=== PATIENT | male | born 1940 | race Caucasian/White ===

== ENCOUNTER → 2017-06-12 | Day surgery (SDC) | payer MEDICARE ==
[~2017-06-12] VITALS: Ht 165.1 cm; Wt 77.3 kg
[~2017-06-12] MED LIST: AMLO5 PO; ASPI-516 CHEW; BUPIVACAINE HCL PF 0.5% 30 ML VIAL ONE; CEPH-459 PO; CHLORHEXIDINE GLUCONATE 2 % 1 PACK (2 CLOTHS) TOPICAL PRN; DOXA1TAB34 PO; KETO1DRO7 EACH EYE; LACTATED RINGER'S 1000 ML IV PRN; LIDOCAINE HCL 1% PF 5 ML SYRINGE OTHER ONE; LIDOCAINE HCL 2% 50 ML VIAL ONE; METOPROLOL TARTRATE 25 MG TAB PO PRN; NEOMYCIN/POLYMYXIN 1 ML G.U. IRRIGANT ONE; OMEGCAP PO; PERC7.5T13 PO; PHENYLEPH/NS 1000 MCG/10 ML SYR IV ONE; POVIDONE IODINE 5% (ANTISEPSIS KIT) 4 APPLICATIONS EACH NARE PRN; PRAV10TA PO; PRIL20TA2 PO; PROPOFOL 200 MG/20 ML AMP IV ONE; REFRDRO EACH EYE; SODIUM CHLORID 0.9% 500 ML IV PRN; ceFAZolin 1,000 MG/NS 100 ML IV SCH; ePHEDrine/NS 25 MG/5 ML SYRINGE IV ONE
[2017-06-12 10:13] LABS: HEMATOCRIT 40.4 % (39.0-51.0); HEMOGLOBIN 13.9 GM/DL (13.0-17.0); MEAN CELL VOLUME 88.4 FL (80.0-100.0); MEAN CORPUSCULAR HEMOGLOBIN 30.5 PG (27.0-34.0); MEAN CORPUSCULAR HGB CONC 34.5 % (32.0-36.0); MEAN PLATELET VOLUME 8.1 FL (7.0-11.0); PLATELET COUNT 223 TH/MM3 (150-450); RED BLOOD COUNT 4.57 MIL/MM3 (4.50-5.90); RED CELL DISTRIBUTION WIDTH 13.5 % (11.6-17.2); WHITE BLOOD COUNT 5.9 TH/MM3 (4.0-11.0)
[2017-06-12 13:53] VITALS: PULSE 77
[2017-06-12 14:15] VITALS: PULSE 74; TEMP 97.8
[2017-06-12 15:00] VITALS: BP 126/74; PULSE 80; RESP 14; O2SAT 97
--- NOTE | 2017-06-12 23:13 | MP ---
cc: TIMOTHY SUAREZ III, M.D. DATE OF SURGERY: 06/12/2017 PREOPERATIVE DIAGNOSIS: Left hand Dupuytren's contractures, all fingers and thumb. PROCEDURE: 1. Left thumb mckay fasciectomy with Z-plasties 2. Left index finger palmar fasciectomy to PIP joint with Z-plasties. 3. Left middle finger palmar fasciectomy. 4. Left ring finger palmar fasciectomy to the PIP joint with Z-plasties. 5. Left small finger palmar fasciectomy to the PIP joint with local advancement flaps. This has a 22 modifier attached to it, as it is very involved, very scarred, partially redo procedure, all fingers which allowed limited time. SURGEON: Timothy Suarez III, MD. DESCRIPTION OF PROCEDURE: The patient was brought to the operating room and placed supine on the operating room table. After the correct site and side of surgery was verified by members of each team in the room multiple times, including the patient and myself, and after adequate preoperative markings, preoperative written consent were verified by everyone, and after adequate preoperative time out was performed to everyone's satisfaction, and after adequate general anesthesia had been achieved, the left upper extremity was prepped and draped in traditional sterile surgical fashion. A 50/50 mixture of 2% lidocaine, 0.5% plain Marcaine was infiltrated in the skin and subcutaneous tissue at the base of palm and first webspace. The limb was exsanguinated with gentle Clay wrap and highly placed well-padded axillary tourniquet inflated to 200 mmHg for total of 83 minutes. Incisions were made along the fascial cords, some in the palm going out to the PIP joint, the first webspace was done in a Z-plasty fashion. Blunt dissection and sharp dissection was performed. Neurovascular bundles were immediately identified and protected the entire time. All of the fascial cords were completely resected out to the PIP joint and the fingers and thumb all extended fully at the PIP and the MP joints. The neurovascular bundles were kept in view the entire time and were intact upon completion. The axillary tourniquet was then released after 83 total minutes and all the fingers became immediately soft, pink and warm and had brisk capillary refill of less than 2 seconds and there was no active bleeding. Z-plasties and advancement flaps were made as needed to cover 99% of the wounds and closed under no tension. There were no right angles crossing any flexion creases. There were no other anatomic abnormalities identified. Two liters worth of saline irrigation was used throughout the case, one-quarter inch Marianne drains split in half longitudinally were placed deep within the three largest wounds, brought out, and these will be removed in the office in two days. The hand and arm were thoroughly cleansed and dried. Betadine Adaptic dressings applied atop of all wounds, with a very bulky sterile soft dressing. A short arm length out to the fingertips, keeping all the fingers and the thumb fully extended which was very easy to do. The patient was awakened from anesthesia and transported to the Post Anesthesia Care Unit awake and in stable condition. At the end of the case sponge, needle and instrument counts were correct as reported by the nurses in the room. MD MELBA Acosta III/CALVIN /2:17 PM /10:53 PM
--- NOTE | 2017-06-13 14:44 | EKG ---
Date Performed: 06/12/2017 Time Performed: 09:52:36 PTAGE: 76 years EKG: Sinus rhythm NORMAL ECG INTERPRETATION BASED ON A DEFAULT AGE OF 40 YEARS NO PREVIOUS TRACING DOCTOR: Dar Tracy Interpretating Date/Time 06/13/2017 14:36:56
== END | disposition home or self-care (01) ==
LOC: PHSDC 08:50
PROVIDERS: ATTEND Orthopaedic Surgery Hand Surgery
DX: M72.0 Palmar fascial fibromatosis [Dupuytren] (principal); I10 Essential (primary) hypertension; E78.5 Hyperlipidemia, unspecified
CPT/HCPCS: 01810; 26123; 26125; 36415; 85027; 88305; 93005; J0690; J2370; J7120